=== PATIENT | male | born 1945 ===

== ENCOUNTER 2022-09-04 12:00 | Inpatient (IN) | payer OTHER ==
[~2022-09-04] VITALS: Ht 172.7 cm; Wt 59.0 kg
[2022-09-04] MEDS ORDERED: [UNRECOGNIZED DRUG - OTHER] PO (15:56)
[2022-09-04] MEDS ORDERED: LIPITOR40 M1 PO (15:57)
[2022-09-04] MEDS ORDERED: [UNRECOGNIZED DRUG - OTHER] PO (15:57)
[2022-09-04] MEDS ORDERED: TIMO (15:58)
[2022-09-05] MEDS ORDERED: GLIMEPIRIDE1 M1 (13:02)
[2022-09-05] MEDS ORDERED: ATORVASTATIN CA10 MG PO (13:02)
[2022-09-05] MEDS ORDERED: AMLODIPINE BESY10 MG (13:03)
[2022-09-05] MEDS ORDERED: DORZOLAMIDE-TIM10 ML (13:03)
[2022-09-07] MEDS ORDERED: METOPROLOL SUCC25 MG (07:47)
== END 2022-09-17 13:01 | disposition home or self-care (01) | DRG 330 ==
LOC: O/R 09-07 05:15 → SURH 09-07 07:00
PROVIDERS: ADMIT Colon & Rectal Surgery; ATTEND Colon & Rectal Surgery
PROC: 0DBP0ZZ Excision of Rectum, Open Approach (ICD-10-PCS; 2022-09-07)
PROC: 0DBM0ZZ Excision of Descending Colon, Open Approach (ICD-10-PCS; 2022-09-07)
PROC: 0WQF0ZZ Repair Abdominal Wall, Open Approach (ICD-10-PCS; 2022-09-07)
PROC: 0DJD8ZZ Inspection of Lower Intestinal Tract, Via Natural or Artificial Opening Endoscopic (ICD-10-PCS; 2022-09-07)
PROC: 0DNW0ZZ Release Peritoneum, Open Approach (ICD-10-PCS; 2022-09-07)
PROC: 0DTN0ZZ Resection of Sigmoid Colon, Open Approach (ICD-10-PCS; principal; 2022-09-07 07:00)
PROC: BW21ZZZ Computerized Tomography (CT Scan) of Abdomen and Pelvis (ICD-10-PCS; 2022-09-10)
DX: K57.20 Diverticulitis of large intestine with perforation and abscess without bleeding (principal); K91.31 Postprocedural partial intestinal obstruction; K62.4 Stenosis of anus and rectum; K43.5 Parastomal hernia without obstruction or gangrene; K66.0 Peritoneal adhesions (postprocedural) (postinfection); E87.6 Hypokalemia; I11.9 Hypertensive heart disease without heart failure; Z20.822 Contact with and (suspected) exposure to COVID-19; Z53.31 Laparoscopic surgical procedure converted to open procedure

== ENCOUNTER 2022-09-25 18:52 | Emergency (ER) | payer OTHER ==
[~2022-09-25] VITALS: Ht 172.7 cm; Wt 56.7 kg
[~2022-09-25 18:52] MED LIST: AMLODIPINE BESY10 MG; ATORVASTATIN CA10 MG PO; DORZOLAMIDE-TIM10 ML; GLIMEPIRIDE1 M1; LIPITOR40 M1 PO; METOPROLOL SUCC25 MG; TIMO; [UNRECOGNIZED DRUG - OTHER] PO; [UNRECOGNIZED DRUG - OTHER] PO
== END 2022-09-26 00:16 | disposition home or self-care (01) ==
LOC: ER 18:52
DX: K91.873 Postprocedural seroma of a digestive system organ or structure following other procedure (principal); R10.9 Unspecified abdominal pain; N20.0 Calculus of kidney; I10 Essential (primary) hypertension